=== PATIENT | male | born 1970 | race Caucasian/White ===

== ENCOUNTER 2019-12-30 10:03 | Emergency (ER) | payer SELFPAY ==
[~2019-12-30] VITALS: Ht 152.4 cm; Wt 79.0 kg
[2019-12-30] MEDS ORDERED: PERTUSS(ACELL),DIPH,TET VAC/PF 0.5 ML VIAL IM ONE (11:00)
[2019-12-30] MEDS ORDERED: ACETAMINOPHEN 500 MG TABLET PO ONE (11:00)
[2019-12-30] MEDS ORDERED: CEPHALEXIN MONOHYDRATE 500 MG CAPSULE PO ONE (11:00)
[2019-12-30] MEDS ORDERED: POVIDONE-IODINE 10% 15 ML SOLUTION UD TP ONE (11:30)
[2019-12-30 11:55] VITALS: BP 125/71
== END 2019-12-30 12:07 | disposition home or self-care (01) ==
LOC: EMS 10:10
DX: L03.116 Cellulitis of left lower limb (principal)
CPT/HCPCS: 90471; 90715